=== PATIENT | male | born 1985 | race Asian ===

== ENCOUNTER 2020-11-07 14:59 | Emergency (ER) | payer OTHER ==
[~2020-11-07] VITALS: Ht 172.7 cm; Wt 154.6 kg
[2020-11-07 15:06] VITALS: BP 145/102
== END 2020-11-07 15:58 | disposition home or self-care (01) ==
LOC: EMS 15:06
DX: M10.9 Gout, unspecified (principal)
CPT/HCPCS: 99281; Z7502

== ENCOUNTER 2021-04-30 23:09 | Emergency (ER) | payer OTHER ==
[~2021-04-30] VITALS: Ht 172.7 cm; Wt 136.4 kg
[2021-04-30 23:11] VITALS: BP 151/83
== END 2021-04-30 23:35 | disposition home or self-care (01) ==
LOC: EMS 23:12
DX: M10.9 Gout, unspecified (principal); I10 Essential (primary) hypertension
CPT/HCPCS: 99283